=== PATIENT | female | born 1985 | race African-American/Black ===

== ENCOUNTER 2024-10-22 15:12 | Emergency (ER) | payer SELFPAY ==
[2024-10-22 15:22] VITALS: BP 120/84
--- NOTE | 2024-10-22 16:23 | ED.GENMED ---
History of Present Illness
General
Chief Complaint: Headache
Time Seen by Provider: 10/22/24 15:38
History of Present Illness
History of Present Illness:
39-year-old female without significant past medical history presenting for right-sided head pain. Patient reports symptom started about 50 minutes prior to arrival when she was at [facility]. Pain is focal to the right frontal aspect of the head.
Denies any longstanding history of migraine or tension headache. Denies visual changes. Does report that when she got to the hospital, felt that she was having tingling to her right upper extremity. Denies weakness. Denies fever or neck pain.
Denies any history of stroke. Notes prior history of meningioma. Denies chest pain, difficulty breathing, or additional acute medical complaints
Phy Exam
Physical Exam
Physical Exam:
General: Well-appearing, no clinical signs of dehydration, nontoxic and in no acute distress
HEENT: protecting airway, extraocular movements intact
Neck: appears supple, no meningismus
CV: Normal heart rate, regular rhythm
Resp: No accessory muscle use, no increased work of breathing, lungs clear to auscultation bilaterally
Abd: No distention
Extremities: No deformities, no swelling
Neuro: alert, no focal neurologic deficit
: deferred
Rectal: deferred
Psych: Normal affect
Skin: Intact
Course
Orders/Labs/Results
Orders:
Orders
10/22/24 15:31
CT Head W/o Iv Contrast Urgent
Comment:
Reason For Exam: headache, right sided numbness
10/22/24 15:50
0.9% Sodium Chloride 1000 ml [Nss] 1,000 ml IV BOLUS
Ketorolac [Toradol] 15 mg IV NOW STA
Ondansetron Injectable [Zofran] 4 mg IV NOW STA
10/22/24 16:56
Complete Blood Count/With Diff Urgent
Comprehensive Metabolic Panel Urgent
Abnormal Lab Results
10/22/24
16:56
RBC 3.83 L 10^6/uL
(4.20-5.40)
Hgb 7.7 L g/dL
(12.0-16.0)
Hct 27.4 L %
(37.0-47.0)
MCV 71.5 L fL
(81.0-99.0)
MCH 20.1 L pg
(27.0-31.0)
MCHC 28.1 L g/dL
(33.0-37.0)
RDW 19.9 H %
(11.5-14.5)
Plt Count 432 H 10^3/uL
(130-400)
Chloride 108 H mmol/L
(98-107)
Carbon Dioxide 21 L mmol/L
(22-30)
Glucose 106 H mg/dl
(70-99)
10/22/24 16:56
10/22/24 16:56
Vital Signs
Initial and Last Documented VS:
Initial Vital Signs
Temp Pulse Resp BP Pulse Ox
98.0 F 79 16 120/84 98
10/22/24 15:22 10/22/24 15:22 10/22/24 15:22 10/22/24 15:22 10/22/24 15:22
Last Documented Vital Signs
Temp Pulse Resp BP Pulse Ox
98.0 F 79 16 120/84 98
10/22/24 15:22 10/22/24 15:22 10/22/24 15:22 10/22/24 15:22 10/22/24 15:22
MDM/Problems Addressed
MDM/Problems Addressed:
39-year-old female presenting for right-sided head pain. Vital signs are normal.
On exam, patient is resting comfortably, no acute distress or discomfort. Pain is reproducible to the scalp, suspected scalp irritation versus tension headache. Patient initially evaluated in triage, had noted some tingling to the right upper
extremity. Sensation and motor is grossly intact without present suspicion for acute stroke. CT brain ordered prior to my assessment. Patient afebrile, nontoxic, no meningismus or present concern for meningitis. No focal neurologic deficits on
exam or concern for acute central neurologic process. No report of trauma or concern for any acute traumatic intracranial abnormality. Blood pressure within normal limits, without concern for pseudotumor cerebri. No tenderness to the temporal
arteries, without concern for temporal arteritis.
16:20 - CT shows evidence of meningioma versus calcification, known to patient. Otherwise no acute findings to explain patient's symptoms. Will administer Toradol, fluids, Zofran and reassess
17:40 -patient reports that she is feeling much better. Continue to suspect tension quality headache. On screening laboratory analysis, hemoglobin of 7.7. Patient notes history of anemia, has uterine fibroids and is currently on her menstrual
cycle. This could also be contributing to patient's headache. Do not feel patient requires transfusion at this time, hemodynamically stable, however did explain to patient that if her bleeding is worsening with concomitant dyspnea, fatigue,
lightheadedness, may need to come back to the hospital for reevaluation and potential transfusion. Patient verbalized understanding
*Critical Care Note
Total Time (30-74mins, 75-104mins- exclusive of procedures): Not Applicable
ED Attending Note
-
Portions of this chart may have been created with voice recognition software.� Occasional wrong word or��sound alike� substitutions may have occurred due to the inherent limitations of voice recognition software.
Discharge Plan
Departure
Referrals:
NONE,* [Family Provider] -
Interventions
Interventions:
*Risk Screen - Suicide Last Done: 10/22/24 15:22
*General Assessment Last Done: 10/22/24 15:22
*Neglect/Abuse Screening Last Done: 10/22/24 17:00
*ED- Fall Risk Assessment Last Done: 10/22/24 17:00
*ED COVID-19 Vaccine History Last Done: 10/22/24 15:22
ED- Neurological Assessment Last Done: 10/22/24 17:00
Discharge Date and Time
Print Language: HUNGARIAN
[2024-10-22] MEDS: TORADOL 15 MG IV (16:58)
[2024-10-22] MEDS: NSS 1000 IV (16:59)
[2024-10-22 17:09] LABS: Hematocrit 27.4 % (37.0-47.0); Hemoglobin 7.7 g/dL (12.0-16.0); Mean Corp Hgb Conc. 28.1 g/dL (33.0-37.0); Mean Corpuscular Hgb 20.1 pg (27.0-31.0); Mean Corpuscular Volume 71.5 fL (81.0-99.0); Platelet Count 432 10^3/uL (130-400); Red Blood Cell Count 3.83 10^6/uL (4.20-5.40); Red Cell Dist. Width 19.9 % (11.5-14.5); White Blood Cell Count 6.4 10^3/uL (4.8-10.8)
[2024-10-22 17:18] LABS: ALT (SGPT) 13 U/L (0-35); AST (SGOT) 18 U/L (14-36); Albumin 3.9 g/dl (3.5-5.0); Alkaline Phosphatase 97 U/L (38-126); Blood Urea Nitrogen 10 mg/dl (7-17); Calcium 8.7 mg/dl (8.4-10.2); Carbon Dioxide 21 mmol/L (22-30); Chloride 108 mmol/L (98-107); Glucose 106 mg/dl (70-99); Potassium 3.9 mmol/L (3.5-5.1); Sodium 138 mmol/L (135-145); Total Bilirubin 0.5 mg/dl (0.2-1.3); Total Protein 6.6 g/dl (6.3-8.2); eGFR > 60.00
[2024-10-22 17:41] VITALS: BMI 42.4
[2024-10-22 17:43] LABS: % Basophils 0.8 % (0-2); % Eosinophils 6.5 % (0-6); % Immature Granulocytes 0.2 % (0-0.5); % Lymphocytes 38.5 % (20.5-51.1); % Monocytes 6.2 % (1.7-9.3); % Neutrophils 47.8 % (42.2-75.2); Absolute Basophils 0.1 10^3/uL (0-0.2); Absolute Eosinophils 0.4 10^3/uL (0-0.7); Absolute Lymphocytes 2.5 10^3/uL (1.2-3.4); Absolute Monocytes 0.4 10^3/uL (0.1-0.6); Absolute Neutrophils 3.1 10^3/uL (1.4-6.5); Nucleated Red Blood Cells % 0 %
[2024-10-22 17:45] LABS: Anisocytosis 2+; Hypochromasia 1+; Macrocytosis 2+; Normal RBC Morphology No; Ovalocytes 1+; Spherocytes Occasional; Target Cells 1+; Tear Drop Red Blood Cells 1+
[2024-10-22 17:55] VITALS: BP 118/76
== END 2024-10-22 17:55 | disposition home or self-care (01) ==
LOC: EMR 15:12
PROVIDERS: EMERGENCY PHYSICIAN Student in an Organized Health Care Education/Training Program
DX: R51.9 Headache, unspecified (principal); R20.2 Paresthesia of skin; D64.9 Anemia, unspecified; D25.9 Leiomyoma of uterus, unspecified
CPT/HCPCS: 96374; 96361; 99284; 70450; 80053; 85025